=== PATIENT | female | born 2000 | race Caucasian/White ===

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

== ENCOUNTER 2022-09-30 09:16 | Emergency (ER) | payer OTHER ==
[~2022-09-30] VITALS: Ht 182.9 cm; Wt 73.9 kg
[~2022-09-30 09:16] MED LIST changes: +FEOSOL325 MG PO; +MAGNESIUM200 MG PO; +ZOFRAN4 MG PO
== END 2022-09-30 10:36 | disposition home or self-care (01) ==
LOC: ED 09:16
DX: J06.9 Acute upper respiratory infection, unspecified (principal); J98.01 Acute bronchospasm; Z20.822 Contact with and (suspected) exposure to COVID-19; Z88.8 Allergy status to other drugs, medicaments and biological substances; Z79.899 Other long term (current) drug therapy
CPT/HCPCS: 71045; 87502; 94640; 94664; 99285-25; C9803; U0003

== ENCOUNTER 2022-10-09 22:15 | Emergency (ER) | payer OTHER ==
[~2022-10-09] VITALS: Ht 167.6 cm; Wt 73.9 kg
--- OUTSIDE RECORDS SUMMARY | 2022-10-09 22:24 | XMS ---
PreManage Notification: ANGUS EVANS Security Data Control Clerk Events No recent Security Events currently on file CRITERIA MET - [facility] - Visits in 30 Days CARE PROVIDERS -, Amadeo- Dentist: Child Welfare Specialist [facility] PHONE: [phone] [facility] has no Care Guidelines for this patient. Iliana VISIT COUNT (12 MO.) [address] TOTAL 3 NOTE: Visits indicate total known visits. ED/UCC VISIT TRACKING (12 MO.) 10/09/2022 22:16 [facility] [place] TYPE: Emergency COMPLAINT: - LT EAR PAIN 09/30/2022 09:16 [facility] [place] TYPE: Emergency COMPLAINT: - SHORTNESS OF BREATH DIAGNOSES: - Cough, unspecified - Contact with and (suspected) exposure to COVID-19 - Allergy status to other drugs, medicaments and biological substances - Acute upper respiratory infection, unspecified - Other alf (current) drug therapy - Acute bronchospasm 02/12/2022 12:25 [facility] [place] TYPE: Emergency COMPLAINT: - LACERATION ON FOOT DIAGNOSES: - Activity, running - Sprain of unspecified ligament of right ankle, initial encounter - Contact with other sharp object(s), not elsewhere classified, initial encounter - Laceration without foreign body, right foot, initial encounter - Sprain of unspecified ligament of right ankle, initial encounter - Laceration without foreign body, right foot, initial encounter - Activity, running - Contact with other sharp object(s), not elsewhere classified, initial encounter INPATIENT VISIT TRACKING (12 MO.) No inpatient visits to display in this time frame [email or web address]
[2022-10-09] MEDS ORDERED: AMOX TR-K CLV1 EAC1 PO (23:17)
[2022-10-09] MEDS ORDERED: DIFLUCAN150 MG PO (23:26)
== END 2022-10-09 23:45 | disposition home or self-care (01) ==
LOC: ED 22:15
DX: H65.92 Unspecified nonsuppurative otitis media, left ear (principal); H72.92 Unspecified perforation of tympanic membrane, left ear; Z91.018 Allergy to other foods
CPT/HCPCS: 99282; A9270